=== PATIENT | female | born 1985 | race Caucasian/White ===

== ENCOUNTER 2016-12-27 11:56 | Emergency (ER) | payer OTHER ==
[~2016-12-27] VITALS: Ht 157.5 cm; Wt 47.9 kg
[2016-12-27 12:01] VITALS: BP 137/90; TEMP 36.9; Ht 157.5 cm; Wt 47.9 kg
[2016-12-27] MEDS ORDERED: HYDR-5688 PO (12:34)
--- NOTE | 2016-12-27 12:35 | EMERGENCY ROOM VISIT NOTE ---
ED Visit Note First contact with patient: 12:19 CHIEF COMPLAINT: Low back pain HISTORY OF PRESENT ILLNESS: This 31-year-old female patient presents to the emergency department ambulatory complaining of pain in the low back which began yesterday while at work. The pain was gradual in onset, is now constant and worse with movement. The patient notes the pain as a soreness and a 6/10. The patient has taken nothing for relief of the pain. The patient denies any bowel or bladder difficulties. There has been no leg numbness or weakness, and no change in sensation. No nausea or vomiting or abdominal pain. No chest pain or shortness of breath. The patient has had prior back injuries. The patient reports a history of scoliosis and chronic low back pain. She states it seems worse since yesterday. REVIEW OF SYSTEMS: No dysuria or increased urinary frequency. A 6 system review of systems was completed and pertinent positives and negatives are in the HPI. ALLERGIES: Latex MEDICATIONS: See nursing notes PMH: Patient denies SOCIAL HISTORY: The patient is employed. She is a smoker PHYSICAL EXAM: VITALS: Vitals are noted on the nurse's note and reviewed by myself. No abnormalities noted. GENERAL: This is a 31-year-old female, in no acute distress, nondiaphoretic, well-developed well-nourished. SKIN: The skin was without rashes, erythema, edema, or bruising. Capillary refill less than 2 seconds. NECK: Supple without nuchal rigidity. No cervical spine tenderness. No paraspinous muscle tenderness. HEART: Regular rate and rhythm without murmurs gallops or rubs. LUNGS: Clear to auscultation bilaterally without wheezes, rales or rhonchi. ABDOMEN: Positive bowel sounds x 4. Normal tympanic percussion. Soft, nontender, without masses or organomegaly. Cruz sign negative. MUSCULOSKELETAL: No muscle atrophy, erythema, or edema noted of the back. There is moderate tenderness over the lumbar spinous processes. There is no tenderness over the paraspinous muscles. There is no tenderness over the thoracic spine or paraspinous muscles. There are no muscle spasms present. The patient is slow to move around with maximum tenderness with extension. Negative straight leg raise test. NEURO: Patient was alert and oriented to person place and time. Normal sensation to light and sharp touch. Deep tendon reflexes 2+ in the lower extremities. Dorsalis pedis pulse 2+ bilaterally. Heel and toe walking is normal. EMERGENCY DEPARTMENT COURSE: The patient was seen and examined. Previous visits were reviewed. The patient does not have a fever. She does not have any neurologic deficit on exam or by history. The patient seems to have an exacerbation of her chronic pain. She will be given a small prescription for [place]. She will be given a note for work. She should return to the emergency Department with any worsening symptoms. Otherwise, she should follow with her family doctor next week. DIFFERENTIAL DIAGNOSIS: Lumbar strain, degenerative disc disease, spondylolisthesis, herniated disc, spinal stenosis, osteoporosis, fracture, cauda equina syndrome, neoplasm, infection, inflammatory arthritis, among others. DIAGNOSIS: Lumbar strain DISCHARGE INSTRUCTIONS AND TREATMENT: Rest off your feet for 1 to 2 days, ice for 24 hrs then heat to the low back. See your own doctor or an orthopedist in 3-5 days if you are not improving. Ibuprofen 600 mg every 6 hours if needed for the pain. [place] 1 tablet every 6 hours if needed for worse pain. Do not drink or drive while taking [place] and do not take with Tylenol.Return if any problems with bowel or bladder function or if loss of sensation/movement of lower extremities. Problem List Medical Problems: (1) AC PYELONEPHRITIS NOS Status: Resolved (2) Asthma Status: Chronic (3) Back pain Status: Resolved (4) Bronchitis Status: Resolved (5) Bronchitis Status: Resolved (6) Chest pain Status: Resolved (7) Chest wall pain Status: Resolved (8) Chest wall pain Status: Resolved (9) Dysuria Status: Resolved (10) E. COLI INFECT NOS Status: Resolved (11) Flu-like symptoms Status: Resolved (12) Infected insect bite of right leg Status: Resolved (13) Infected insect bite of right leg Status: Resolved (14) Persistent cough Status: Resolved (15) Sinus infection Status: Resolved (16) URIN TRACT INFECTION NOS Status: Resolved (17) Urinary tract infection Status: Resolved (18) Urinary tract infection Status: Resolved (19) Urinary tract infection Status: Resolved (20) UTI (urinary tract infection) Status: Resolved (21) Weakness Status: Resolved Surgical Problems: (1) History of tubal ligation Status: Resolved Current/Historical Medications Scheduled PRN Hydrocodone/Acetaminophen 5MG/325MG ([place] 5MG/325MG), 1 TABLET PO Q6 PRN for Pain Allergies Coded Allergies: Latex1 -Allergic Contact Dermititis (Verified Allergy, Unknown, RASH, 12/27) Vital Signs Date Time Temp Pulse Resp B/P Pulse Ox O2 Delivery O2 Flow Rate FiO2 12/27/16 12:49 85 18 96 Room Air 12/27/16 12:01 36.9 97 20 137/90 94 Room Air Departure Information Impression Primary Impression: Strain of lumbar region Dispostion Home / Self-Care Condition GOOD Prescriptions Hydrocodone/Acetaminophen 5MG/325MG ([place] 5MG/325MG) Tab 1 TABLET PO Q6 Y for Pain, #12 TAB For Initial Treatment Prov: Damaris Cole PA-C 12/27/16 Referrals No Doctor, Assigned (PCP) Patient Instructions Back Pain - [facility], [facility] Additional Instructions Rest off your feet for 1 to 2 days, ice for 24 hrs then heat to the low back. See your own doctor or an orthopedist in 3-5 days if you are not improving. Ibuprofen 600 mg every 6 hours if needed for the pain. [place] 1 tablet every 6 hours if needed for worse pain. Do not drink or drive while taking [place] and do not take with Tylenol.Return if any problems with bowel or bladder function or if loss of sensation/movement of lower extremities. Problem Qualifiers Primary Impression: Strain of lumbar region Encounter type: initial encounter Qualified Codes: S39.012A - Strain of muscle, fascia and tendon of lower back, initial encounter
[2016-12-27 12:49] VITALS: PULSE 85; O2SAT 96
== END 2016-12-27 12:49 | disposition home or self-care (01) ==
LOC: C.EDB 11:57 → C.EDD 12:49
DX: S39.012A Strain of muscle, fascia and tendon of lower back, initial encounter (principal); X58.XXXA Exposure to other specified factors, initial encounter; Y99.0 Civilian activity done for income or pay; F17.200 Nicotine dependence, unspecified, uncomplicated; J45.909 Unspecified asthma, uncomplicated; Z98.51 Tubal ligation status

== ENCOUNTER 2017-02-28 09:05 | Emergency (ER) | payer OTHER ==
[~2017-02-28] VITALS: Ht 157.5 cm; Wt 48.7 kg
[~2017-02-28 09:05] MED LIST: HYDR-5688 PO
[2017-02-28 09:09] VITALS: TEMP 36.7; Ht 157.5 cm; Wt 48.7 kg
[2017-02-28] MEDS ORDERED: ALBUT/IPRATROP 3MG/0.5MG NEB 3 ML VIAL INH STA (09:20)
[2017-02-28 09:47] LABS: URINE APPEARANCE CLOUDY (CLEAR); URINE BILIRUBIN NEG (NEG); URINE COLOR YELLOW; URINE EPITHELIAL CELL AUTO >30 /lpf (0-5); URINE NITRITE NEG (NEG); URINE PH 7.5 (4.5-7.5); URINE SPECIFIC GRAVITY 1.025 (1.000-1.030); UROBILINOGEN NEG (NEG); ZZUR CULT IF INDIC CLEAN CATCH YES
[2017-02-28 09:48] LABS: MANUAL MICROSCOPIC REQUIRED? NO; REVIEW REQ? NO
[2017-02-28] MEDS ORDERED: SULFAMETHOXAZOLE/TRIMETHOPRIM DS 800/160MG TAB PO STA (10:40)
[2017-02-28] MEDS ORDERED: SULF800T23 PO (10:42)
--- NOTE | 2017-02-28 10:49 | EMERGENCY ROOM VISIT NOTE ---
History Report prepared by Lisa: Zhao Castro Under the Supervision of: Dr. Terrence Lopez D.O. First contact with patient: 09:15 Chief Complaint: URINARY SYMPTOMS Stated Complaint: UTI Nursing Triage Summary: Pt reports she has interstitial cystitis Pt c/o painful urination x1 week History of Present Illness The patient is a 31 year old female who presents to the Emergency Room with complaints of persistent urinary symptoms for the past week. Her symptoms include burning with urination as well as urinary frequency. She also complains of nausea. Her symptoms feel exactly like previous UTIs. She has many UTIs throughout the year. She does have history of interstitial cystitis but notes that her current symptoms feel UTI-related. She does not have history of past abdominal surgeries. LNMP was three weeks ago and she denies the possibility of . Patient denies headache, change in vision, fevers, chest pain, shortness of breath, new back pain, abdominal pain, vomiting, diarrhea, pain with urination, melena, or abnormal vaginal bleeding / discharge. Source of History: patient Onset: this past week Position: other (urinary) Quality: other (UTI symptoms) Timing: other (persistent) Associated Symptoms: + nausea, No SOB, No abdominal pain, No back pain, No chest pain, No diarrhea, No fevers, No headache, No melena, No vomiting Review of Systems See HPI for pertinent positives & negatives. A total of 10 systems reviewed and were otherwise negative. Past Medical & Surgical Medical Problems: (1) AC PYELONEPHRITIS NOS (2) Asthma (3) Back pain (4) Bronchitis (5) Bronchitis (6) Chest pain (7) Chest wall pain (8) Chest wall pain (9) Dysuria (10) E. COLI INFECT NOS (11) Flu-like symptoms (12) Infected insect bite of right leg (13) Infected insect bite of right leg (14) Persistent cough (15) Sinus infection (16) URIN TRACT INFECTION NOS (17) Urinary tract infection (18) Urinary tract infection (19) Urinary tract infection (20) UTI (urinary tract infection) (21) Weakness Surgical Problems: (1) History of tubal ligation Family History Diabetes mellitus FH: arthritis FH: cancer FH: lung disease FHx: gallbladder disease Hypertension Kidney disease or stones Social History Smoking Status: Current Every Day Smoker Alcohol Use: occasionally Drug Use: none Marital Status: in relationship Housing Status: lives with family Occupation Status: unemployed Current/Historical Medications Scheduled Sulfa/Trimethoprim (Bactrim Ds 800MG/160MG), 1 TAB PO BID Allergies Coded Allergies: Latex1 -Allergic Contact Dermititis (Verified Allergy, Unknown, RASH, 02/28) Physical Exam Vital Signs Date Time Temp Pulse Resp B/P Pulse Ox O2 Delivery O2 Flow Rate FiO2 02/28/17 10:51 66 138/84 100 02/28/17 09:09 36.7 59 18 118/74 100 Room Air Physical Exam GENERAL: Sitting up in bed, alert, well appearing, well nourished, no distress, non-toxic EYE EXAM: normal conjunctiva. OROPHARYNX: no exudate, no erythema, lips, buccal mucosa, and tongue normal and mucous membranes are moist NECK: supple, no nuchal rigidity, no adenopathy, non-tender LUNGS: Clear to auscultation. Normal chest wall mechanics HEART: no murmurs, S1 normal and S2 normal ABDOMEN: abdomen soft, non-tender, normo-active bowel sounds, no masses, no rebound or guarding. SKIN: no rashes and no bruising UPPER EXTREMITIES: upper extremities are grossly normal. LOWER EXTREMITIES: No pitting edema. NEURO EXAM: Normal sensorium, cranial nerves II-XII grossly intact, normal speech, no gross weakness of arms, no gross weakness of legs. Gross sensation intact. Medical Decision & Procedures Laboratory Results Test 02/28/17 09:34 Urine Color YELLOW Urine Appearance CLOUDY (CLEAR) Urine pH 7.5 (4.5-7.5) Urine Specific [place] 1.025 (1.000-1.030) Urine Protein NEG (NEG) Urine Glucose (UA) NEG (NEG) Urine Ketones NEG (NEG) Urine Occult Blood NEG (NEG) Urine Nitrite NEG (NEG) Urine Bilirubin NEG (NEG) Urine Urobilinogen NEG (NEG) Urine Leukocyte Esterase SMALL (NEG) Urine WBC (Auto) 10-30 /hpf (0-5) Urine RBC (Auto) 0-4 /hpf (0-4) Urine Hyaline Casts (Auto) 1-5 /lpf (0-5) Urine Epithelial Cells (Auto) >30 /lpf (0-5) Urine Bacteria (Auto) 1+ (NEG) Urine Test NEG (NEG) Laboratory results per my review. Medications Administered Medications (Trade) Dose Ordered Sig/Elizabeth Route Start Time Stop Time Status Last Admin Dose Admin Trimethoprim/ Sulfamethoxazole (Septra Ds 800/ 160MG Tab) 1 tab NOW STAT PO 02/28/17 10:40 02/28/17 10:41 DC 02/28/17 10:48 1 TAB ED Course ED COURSE: Vital signs were reviewed and showed bradycardia. The patients medical record was reviewed The above diagnostic studies were performed and reviewed. ED treatments and interventions as stated above. 0925: The patient was evaluated in room B3b. A complete history and physical examination was performed. 1040: Septra Ds 800/160 mg PO. 1045: Updated the patient..I discussed my findings with the patient and she understands and agrees with the treatment plan. Based on the patients age, coexisting illnesses, exam and lab findings the decision to treat as an outpatient was made. The patient remained stable while under my care. The patient appeared well at the time of discharge. Medical Decision Differential diagnoses includes but is not limited to gastritis, peptic ulcer disease, GERD, gallbladder disease, pancreatitis, small bowel obstruction, acute coronary syndrome, pericarditis, ischemic bowel, irritable bowel disease, irritable bowel syndrome, appendicitis, diverticulitis, malignancy, hernia, urinary tract infection, torsion, /ectopic (if female), perforation, trauma, infectious. Patient is a 31-year-old female who presents to the ER for dysuria and frequency. She notes that this feels like her previous bouts of a UTI. She does have a history of interstitial cystitis. She has no abdominal pain. No fevers. No new back pain. UA had epithelial cells along with wbcs and leukocytes. Uncertain if this truly is contaminated but with her symptoms I felt it was reasonable to treat her with a dose of Bactrim and have her follow up with primary care doctor. Discussed with Pt concerning signs and symptoms to watch out for. Pt was instructed to follow up with their PCP and discussed with the patient their option to return to the ED at anytime for persistent or worsening symptoms. The appropriate anticipatory guidance and out-patient management, including indications for return to the emergency department, were explained at length to the patient and understood. Impression Primary Impression: Urinary tract infection Scribe Attestation The scribe's documentation has been prepared under my direction and personally reviewed by me in its entirety. I confirm that the note above accurately reflects all work, treatment, procedures, and medical decision making performed by me. Departure Information Dispostion Home / Self-Care Prescriptions Sulfa/Trimethoprim (Bactrim Ds 800MG/160MG) Tab 1 TAB PO BID, #14 TAB Prov: Terrence Lopez, DO 02/28/17 Referrals No Doctor, Assigned (PCP) Forms HOME CARE DOCUMENTATION FORM, IMPORTANT VISIT INFORMATION Patient Instructions ED UTI Cystitis Female, My [facility] Additional Instructions Please follow up with your primary care doctor with in the next 24 hours. Any worsening of your symptoms, please return to the ED immediately. This includes fevers greater than 100.4, back pain, worsening abdominal pain, or any other concerning signs or symptoms from your standpoint. Please take antibiotics as prescribed. Problem Qualifiers Primary Impression: Urinary tract infection Urinary tract infection type: acute cystitis Hematuria presence: without hematuria Qualified Codes: N30.00 - Acute cystitis without hematuria
[2017-02-28 10:51] VITALS: BP 138/84; PULSE 66; O2SAT 100
== END 2017-02-28 10:52 | disposition home or self-care (01) ==
LOC: C.EDB 09:06
DX: N39.0 Urinary tract infection, site not specified (principal); J45.909 Unspecified asthma, uncomplicated; Z98.51 Tubal ligation status; Z83.3 Family history of diabetes mellitus; Z80.9 Family history of malignant neoplasm, unspecified; Z82.49 Family history of ischemic heart disease and other diseases of the circulatory system; Z84.1 Family history of disorders of kidney and ureter; F17.210 Nicotine dependence, cigarettes, uncomplicated

== ENCOUNTER 2017-11-23 11:51 | Emergency (ER) | payer OTHER ==
[~2017-11-23] VITALS: Ht 157.5 cm; Wt 47.2 kg
[2017-11-23 11:58] VITALS: TEMP 36.4; Ht 157.5 cm; Wt 47.2 kg
[2017-11-23] MEDS ORDERED: SODIUM CHLORIDE 0.9% 1000ML 1,000 ML IV STA (14:19)
[2017-11-23] MEDS ORDERED: KETOROLAC TROMETHAMINE 30 MG/ML VIAL IV STA (14:19)
--- NOTE | 2017-11-23 14:55 | DIAGNOSTIC IMAGING REPORT ---
SINGLE VIEW CHEST CLINICAL HISTORY: Atypical chest pain. FINDINGS: An AP, portable, upright chest radiograph is compared to study dated 04/24/2014. The examination is degraded by portable technique and patient rotation. The cardiomediastinal silhouette is unremarkable. The lungs and pleural spaces are clear. No pneumothorax is seen. The bony thorax is grossly intact. There is mild S-shaped thoracolumbar scoliosis. IMPRESSION: No acute cardiopulmonary abnormality. Electronically signed by: Nayan Denis M.D. 11/23/2017 2:53 PM Dictated Date/Time: 11/23/2017 2:53 PM
[2017-11-23 14:58] LABS: HEMATOCRIT 41.1 % (37-47); HEMOGLOBIN 14.3 g/dL (12.0-16.0); MEAN CELL VOLUME 92.6 fL (80-100); MEAN CORPUSCULAR HEMOGLOBIN 32.2 pg (25-34); MEAN CORPUSCULAR HGB CONC 34.8 g/dl (32-36); MEAN PLATELET VOLUME 11.2 fL (7.4-10.4); PLATELET COUNT 281 K/uL (130-400); RED CELL DISTRIBUTION WIDTH CV 12.8 % (11.5-14.5); RED CELL DISTRIBUTION WIDTH SD 43.1 fL (36.4-46.3); WHITE BLOOD COUNT 11.49 K/uL (4.8-10.8)
[2017-11-23 15:26] LABS: ALBUMIN 4.4 gm/dl (3.4-5.0); ALT/SGPT 19 U/L (12-78); AST/SGOT 15 U/L (15-37); BLOOD UREA NITROGEN 9 mg/dl (7-18); CALCIUM 9.4 mg/dl (8.5-10.1); CARBON DIOXIDE 26 mmol/L (21-32); CREATININE 0.83 mg/dl (0.60-1.20); GLUCOSE 78 mg/dl (70-99); POTASSIUM 3.5 mmol/L (3.5-5.1); SODIUM 137 mmol/L (136-145)
[2017-11-23 15:31] LABS: ALKALINE PHOSPHATASE 65 U/L (45-117); LIPASE 102 U/L (73-393); TOTAL PROTEIN 8.7 gm/dl (6.4-8.2)
[2017-11-23 15:55] LABS: BASO % 0.3 %; BASO ABS # 0.03 K/uL (0-0.2); EOS % 0.6 %; EOS ABS # 0.07 K/uL (0-0.5); IG# 0.02 K/uL (0.00-0.02); LYMPH % 30.1 %; LYMPH ABS # 3.46 K/uL (1.2-3.4); MONO % 12.4 %; MONO ABS # 1.43 K/uL (0.11-0.59); NEUT % 56.4 %; NEUT ABS # 6.48 K/uL (1.4-6.5)
[2017-11-23 16:00] VITALS: BP 108/71
[2017-11-23 16:21] VITALS: PULSE 57; O2SAT 98
--- NOTE | 2017-11-23 21:43 | EMERGENCY ROOM VISIT NOTE ---
History Report prepared by Lisa: Blayne Rodriguez Under the Supervision of: Dr. Terrence Lopez D.O. First contact with patient: 14:12 Chief Complaint: ILLNESS Stated Complaint: LIGHTHEADED,NAUSEA,CHEST PAIN History of Present Illness The patient is a 32 year old female who presents to the Emergency Room with complaints of on and off chest left chest and abdominal pain starting in September which she describes as a sharp stabbing pain. She states that the chest pain shoots down her arm, and it is worsened with twisting, turning, and bending, and nothing makes it better. She additionally states that she gets short of breath due to the chest pain as it takes her breath away. The patient reports that she has been feeling weak since 2011, and she notes that she feels weak all of the time. She reports that she had six bowel movements yesterday which were all diarrhea. She also states that the other week she had a bruise under her left breast, and she states that she did not hit anything. The patient states that she has a blood disorder, though she is insure what it is, and they wanted to test her for fibromyalgia. She states that her last period was a few days ago, and she denies any vaginal bleeding or discharged. The patient is a heavy smoker. She has a family history of heart attacks, and she states that her cousin who is younger than her recently of a heart attack. She has not had any abdominal surgeries in the past. Pt denies headache, change in vision, fevers, nausea, vomiting, cough, runny nose, pain with urination, and melena. Source of History: patient Onset: September Position: chest, abdomen Quality: sharp, stabbing Timing: other (on and off) Modifying Factors (Worsening): other (twisting, turning, bending over, and deep inspiration) Modifying Factors (Relieving): other (nothing) Associated Symptoms: + SOB, + diarrhea, + weakness Review of Systems See HPI for pertinent positives & negatives. A total of 10 systems reviewed and were otherwise negative. Past Medical & Surgical Medical Problems: (1) AC PYELONEPHRITIS NOS (2) Asthma (3) Back pain (4) Bronchitis (5) Bronchitis (6) Chest pain (7) Chest wall pain (8) Chest wall pain (9) Dysuria (10) E. COLI INFECT NOS (11) Flu-like symptoms (12) Infected insect bite of right leg (13) Infected insect bite of right leg (14) Persistent cough (15) Sinus infection (16) URIN TRACT INFECTION NOS (17) Urinary tract infection (18) Urinary tract infection (19) Urinary tract infection (20) UTI (urinary tract infection) (21) Weakness Surgical Problems: (1) History of tubal ligation Family History Diabetes mellitus FH: arthritis FH: cancer FH: lung disease FHx: gallbladder disease Hypertension Kidney disease or stones Social History Smoking Status: Current Every Day Smoker Alcohol Use: occasionally Drug Use: none Marital Status: in relationship Housing Status: lives with family Occupation Status: unemployed Current/Historical Medications No Active Prescriptions or Reported Meds Allergies Coded Allergies: Latex1 -Allergic Contact Dermititis (Verified Allergy, Unknown, RASH, ) Physical Exam Vital Signs Date Time Temp Pulse Resp B/P (MAP) Pulse Ox O2 Delivery O2 Flow Rate FiO2 11/23/17 16:21 57 98 11/23/17 16:00 108/71 11/23/17 15:51 61 19 99 11/23/17 15:47 100/61 11/23/17 15:21 57 16 11/23/17 14:51 55 17 11/23/17 14:34 60 11/23/17 14:31 78 18 117/83 99 Room Air 11/23/17 14:31 117/83 11/23/17 11:58 36.4 63 18 129/80 99 Room Air Physical Exam GENERAL: Sitting up in bed, alert, well appearing, well nourished, no distress, non-toxic EYE EXAM: normal conjunctiva. OROPHARYNX: no exudate, no erythema, lips, buccal mucosa, and tongue normal and mucous membranes are moist NECK: supple, no nuchal rigidity, no adenopathy, non-tender, no JVD LUNGS: Clear to auscultation. Normal chest wall mechanics HEART: no murmurs, S1 normal and S2 normal CHEST: Acute reproducible left anterior chest wall pain same as stated complaint. ABDOMEN: abdomen soft, non-tender, normo-active bowel sounds, no masses, no rebound or guarding. BACK: Back is symmetrical on inspection and there is no deformity, no midline tenderness, no CVA tenderness. SKIN: no rashes and no bruising UPPER EXTREMITIES: upper extremities are grossly normal. LOWER EXTREMITIES: No pitting edema. Calves equal bilaterally. NEURO EXAM: Normal sensorium, cranial nerves II-XII grossly intact, normal speech, no gross weakness of arms, no gross weakness of legs. Ambulates without difficulty Medical Decision & Procedures ER Provider Diagnostic Interpretation: Radiology results as stated below per my review and the radiologist's interpretation: SINGLE VIEW CHEST CLINICAL HISTORY: Atypical chest pain. FINDINGS: An AP, portable, upright chest radiograph is compared to study dated 04/24/2014. The examination is degraded by portable technique and patient rotation. The cardiomediastinal silhouette is unremarkable. The lungs and pleural spaces are clear. No pneumothorax is seen. The bony thorax is grossly intact. There is mild S-shaped thoracolumbar scoliosis. IMPRESSION: No acute cardiopulmonary abnormality. Electronically signed by: Nayan Denis M.D. 11/23/2017 2:53 PM Dictated Date/Time: 11/23/2017 2:53 PM Laboratory Results 11/23/17 14:30 Red Blood Count 4.44, Mean Corpuscular Volume 92.6, Mean Corpuscular Hemoglobin 32.2, Mean Corpuscular Hemoglobin Concent 34.8, Mean Platelet Volume 11.2, Neutrophils (%) (Auto) 56.4, Lymphocytes (%) (Auto) 30.1, Monocytes (%) (Auto) 12.4, Eosinophils (%) (Auto) 0.6, Basophils (%) (Auto) 0.3, Neutrophils # (Auto ) 6.48, Lymphocytes # (Auto) 3.46, Monocytes # (Auto) 1.43, Eosinophils # (Auto ) 0.07, Basophils # (Auto) 0.03 11/23/17 14:30 Test 11/23/17 14:30 11/23/17 14:35 White Blood Count 11.49 K/uL (4.8-10.8) Red Blood Count 4.44 M/uL (4.2-5.4) Hemoglobin 14.3 g/dL (12.0-16.0) Hematocrit 41.1 % (37-47) Mean Corpuscular Volume 92.6 fL (80-100) Mean Corpuscular Hemoglobin 32.2 pg (25-34) Mean Corpuscular Hemoglobin Concent 34.8 g/dl (32-36) Platelet Count 281 K/uL (130-400) Mean Platelet Volume 11.2 fL (7.4-10.4) Neutrophils (%) (Auto) 56.4 % Lymphocytes (%) (Auto) 30.1 % Monocytes (%) (Auto) 12.4 % Eosinophils (%) (Auto) 0.6 % Basophils (%) (Auto) 0.3 % Neutrophils # (Auto) 6.48 K/uL (1.4-6.5) Lymphocytes # (Auto) 3.46 K/uL (1.2-3.4) Monocytes # (Auto) 1.43 K/uL (0.11-0.59) Eosinophils # (Auto) 0.07 K/uL (0-0.5) Basophils # (Auto) 0.03 K/uL (0-0.2) RDW Standard Deviation 43.1 fL (36.4-46.3) RDW Coefficient of Variation 12.8 % (11.5-14.5) Immature Granulocyte % (Auto) 0.2 % Immature Granulocyte # (Auto) 0.02 K/uL (0.00-0.02) D-Dimer 360 ug/L FEU (0-500) Anion Gap 7.0 mmol/L (3-11) Est Creatinine Clear Calc Drug Dose 72.5 ml/min Estimated GFR () 108.1 Estimated GFR (Non- 93.3 BUN/Creatinine Ratio 10.9 (10-20) Calcium Level 9.4 mg/dl (8.5-10.1) Total Bilirubin 0.8 mg/dl (0.2-1) Direct Bilirubin 0.1 mg/dl (0-0.2) Aspartate Amino Transf (AST/SGOT) 15 U/L (15-37) Alanine Aminotransferase (ALT/SGPT) 19 U/L (12-78) Alkaline Phosphatase 65 U/L (45-117) Troponin I < 0.015 ng/ml (0-0.045) Total Protein 8.7 gm/dl (6.4-8.2) Albumin 4.4 gm/dl (3.4-5.0) Lipase 102 U/L (73-393) Urine Color YELLOW Urine Appearance CLEAR (CLEAR) Urine pH 6.0 (4.5-7.5) Urine Specific [place] 1.019 (1.000-1.030) Urine Protein NEG (NEG) Urine Glucose (UA) NEG (NEG) Urine Ketones NEG (NEG) Urine Occult Blood 2+ (NEG) Urine Nitrite NEG (NEG) Urine Bilirubin NEG (NEG) Urine Urobilinogen NEG (NEG) Urine Leukocyte Esterase MODERATE (NEG) Urine WBC (Auto) 5-10 /hpf (0-5) Urine RBC (Auto) 0-4 /hpf (0-4) Urine Hyaline Casts (Auto) 1-5 /lpf (0-5) Urine Epithelial Cells (Auto) >30 /lpf (0-5) Urine Bacteria (Auto) 1+ (NEG) Urine Mucus PRESENT (NONE PRSENT) Urine Yeast (Auto) (NONE PRSENT) Urine Test NEG (NEG) Laboratory results per my review. Medications Administered Medications (Trade) Dose Ordered Sig/Elizabeth Route Start Time Stop Time Status Last Admin Dose Admin Sodium Chloride 1,000 ml @ 999 mls/hr Q1H1M STAT IV 11/23/17 14:19 11/23/17 15:23 DC 11/23/17 14:39 999 MLS/HR Ketorolac Tromethamine (Toradol Inj) 30 mg NOW STAT IV 11/23/17 14:19 11/23/17 14:21 DC 11/23/17 14:40 30 MG ECG Indication: chest pain Rate (beats per minute): 53 Rhythm: sinus bradycardia Findings: no ectopy, other (Normal axis) Change: Patient's EKG as interpreted by me. ED Course ED COURSE: Vital signs were reviewed and showed normal vitals The patients medical record was reviewed The above diagnostic studies were performed and reviewed. ED treatments and interventions as stated above. 1412: The patient was evaluated in room B9. A complete history and physical examination was performed. 1419: Toradol 30mg IV, Sodium Chloride 1000 ml @ 999 mls/hr IV 1522: I reevaluated the patient, and she was feeling better 1638: Upon reevaluation, the patient is doing well.I discussed my findings with the patient and she understands and agrees with the treatment plan. Based on the patients age, coexisting illnesses, exam and lab findings the decision to treat as an outpatient was made. The patient remained stable while under my care. The patient appeared well at the time of discharge. Medical Decision Differential diagnoses includes but is not limited to acute coronary syndrome, myocardial infarction, pericarditis, pulmonary embolus, aortic dissection, pneumonia, pneumothorax, musculoskeletal, shingles, esophageal. Patient is a 32-year-old female who presents to ER for chest pain associated with shortness of breath which has been present for the past 2-3 months. Chest pain is reproducible and worsens with twisting turning and bending. She also has a multitude of other complaints. CBC along with BMP, LFTs, bilirubin lipase and troponin were all negative. UA was contaminated with multiple epithelial cells. was negative. D-dimer was negative. EKG and chest x-ray were unremarkable. Patient was given fluids. She was updated bedside. She is also given Toradol. She was discharged follow-up with PCP for feeling diffusely weak, muscle skeletal chest pain causing shortness of breath. Discussed with Pt concerning signs and symptoms to watch out for. Pt was instructed to follow up with their PCP and discussed with the patient their option to return to the ED at anytime for persistent or worsening symptoms. The appropriate anticipatory guidance and out-patient management, including indications for return to the emergency department, were explained at length to the patient and understood. Medication Reconcilliation Current Medication List: was personally reviewed by me Blood Pressure Screening Patient's blood pressure: Normal blood pressure Impression Primary Impression: Chest wall pain Scribe Attestation The scribe's documentation has been prepared under my direction and personally reviewed by me in its entirety. I confirm that the note above accurately reflects all work, treatment, procedures, and medical decision making performed by me. Departure Information Dispostion Home / Self-Care Prescriptions No Active Prescriptions or Reported Meds Referrals No Doctor, Assigned (PCP) Forms HOME CARE DOCUMENTATION FORM, IMPORTANT VISIT INFORMATION, WORK / SCHOOL INSTRUCTIONS Patient Instructions Chest Pain - [facility], My [facility] Additional Instructions Please follow up with your primary care doctor with in the next 24 hours. Any worsening of your symptoms, please return to the ED immediately. This includes any fevers greater than 100.4, worsening pain, chest pain, shortness breath, persistent nausea, vomiting, unable to eat or drink, or any other concerning signs or symptoms from your standpoint. Please take Tylenol or Motrin as needed for muscle aches.
--- NOTE | 2017-11-25 11:58 | Pharmacy Progress Note ---
ED Pharmacist Culture FollowUp Date of Service: Nov 25, 2017. Patient urine culture growing Gardnerella-like bacilli >100,000 CFU/ml plus low counts other mixed nikki, Epi >30+ in UA. Discussed with Dr. Ma, no treatment necessary.
== END 2017-11-23 16:30 | disposition home or self-care (01) ==
LOC: C.EDB 11:52
DX: R07.89 Other chest pain (principal); R19.7 Diarrhea, unspecified; F17.200 Nicotine dependence, unspecified, uncomplicated; J45.909 Unspecified asthma, uncomplicated; Z87.440 Personal history of urinary (tract) infections; Z98.51 Tubal ligation status; Z83.3 Family history of diabetes mellitus; Z82.49 Family history of ischemic heart disease and other diseases of the circulatory system; Z82.61 Family history of arthritis

== ENCOUNTER 2018-01-31 19:23 | Emergency (ER) | payer OTHER ==
[~2018-01-31] VITALS: Ht 157.5 cm; Wt 48.9 kg
[2018-01-31 19:27] VITALS: TEMP 36.6; Ht 157.5 cm; Wt 48.9 kg
[2018-01-31] MEDS ORDERED: IBUPROFEN 600 MG TAB PO STA (19:41)
[2018-01-31] MEDS ORDERED: ACET-1256 PO (20:07)
--- NOTE | 2018-01-31 20:07 | DIAGNOSTIC IMAGING REPORT ---
R ANKLE MIN 3 VIEWS ROUTINE CLINICAL HISTORY: 32 years-old Female presenting with R ankle pain. TECHNIQUE: Frontal, mortise, and lateral views of the right ankle were obtained. COMPARISON: None. FINDINGS: No acute fracture or malalignment. No advanced degenerative change. No radiographic soft tissue abnormality. IMPRESSION: No acute osseous injury. Electronically signed by: Delfin Parnell M.D. 01/31/2018 8:06 PM Dictated Date/Time: 01/31/2018 8:06 PM
[2018-01-31 20:24] VITALS: BP 132/79; PULSE 88; O2SAT 99
--- NOTE | 2018-01-31 20:26 | EMERGENCY ROOM VISIT NOTE ---
History First contact with patient: 19:31 Chief Complaint: ANKLE PAIN Stated Complaint: R ANKLE BRUSIED,SWALLON,NON ALESSIA BEARING History of Present Illness The patient is a 32 year old female who presents to the Emergency Room with complaints of a right ankle injury today. The patient reports that she got her foot caught in a duvet cover yesterday at work, twisting her ankle. The patient reports worsening symptoms, bruising and swelling today. She denies any pain radiating into the leg or toes. She denies any paresthesias or numbness of the right foot or toes, and rates her discomfort a 6 out of 10. The patient has taken Tylenol for the pain. She did spend an extensive amount of time on her feet today at work. Review of Systems 10 system review was performed and was negative except for pertinent positives and negatives as indicated in history of present illness Past Medical/Surgical History Medical Problems: (1) AC PYELONEPHRITIS NOS (2) Asthma (3) Back pain (4) Bronchitis (5) Bronchitis (6) Chest pain (7) Chest wall pain (8) Chest wall pain (9) Dysuria (10) E. COLI INFECT NOS (11) Flu-like symptoms (12) Infected insect bite of right leg (13) Infected insect bite of right leg (14) Persistent cough (15) Sinus infection (16) URIN TRACT INFECTION NOS (17) Urinary tract infection (18) Urinary tract infection (19) Urinary tract infection (20) UTI (urinary tract infection) (21) Weakness Surgical Problems: (1) History of tubal ligation Family History Diabetes mellitus FH: arthritis FH: cancer FH: lung disease FHx: gallbladder disease Hypertension Kidney disease or stones Social History Smoking Status: Current Every Day Smoker Alcohol Use: occasionally Drug Use: none Marital Status: in relationship Housing Status: lives with family Occupation Status: unemployed Current/Historical Medications Scheduled PRN Acetaminophen (Tylenol), 1,000 MG PO Q6 PRN for Pain Physical Exam Vital Signs Date Time Temp Pulse Resp B/P (MAP) Pulse Ox O2 Delivery O2 Flow Rate FiO2 01/31/18 19:27 36.6 89 18 133/77 99 Room Air Physical Exam CONSTITUTIONAL: Healthy and well nourished. Alert and oriented X 3 with positive affect. Patient does not appear in any acute distress. HEENT: Normocephalic, atraumatic. Pupils equal, round and reactive. NECK: Full active range of motion without discomfort. MUSCULOSKELETAL: Examination of the right ankle shows mild edema and ecchymosis. The patient has generalized tenderness to palpation medially and laterally. Negative anterior drawer. No focal tenderness over the dorsal midfoot, metatarsals, phalanges, calcaneus or Achilles tendon. Pedal pulses are intact. INTEGUMENTARY: No rash or other significant dermatologic conditions noted. NEUROLOGIC: Right foot and toes are sensory intact. Medical Decision & Procedures ER Provider Diagnostic Interpretation: My interpretation of right ankle x-rays does not show any acute fracture, dislocation or ankle mortise asymmetry. Radiologist report is as follows: R ANKLE MIN 3 VIEWS ROUTINE CLINICAL HISTORY: 32 years-old Female presenting with R ankle pain. TECHNIQUE: Frontal, mortise, and lateral views of the right ankle were obtained. COMPARISON: None. FINDINGS: No acute fracture or malalignment. No advanced degenerative change. No radiographic soft tissue abnormality. IMPRESSION: No acute osseous injury. Medications Administered Medications (Trade) Dose Ordered Sig/Elizabeth Route Start Time Stop Time Status Last Admin Dose Admin Ibuprofen (Motrin Tab) 600 mg NOW STAT PO 01/31/18 19:41 01/31/18 19:43 DC 01/31/18 19:46 600 MG ED Course Patient history and physical exam were performed. Nurse's notes were reviewed. Vital signs were reviewed and were normal. The patient was administered ibuprofen 600 mg and an ice pack for pain. X-rays of the right ankle were normal. The patient was dispensed crutches and an ankle gel splint. The patient was encouraged to limit weightbearing over the next several days. She was given instructions on range of motion exercises. She was encouraged alternate ibuprofen and Tylenol as needed for pain relief. I did encourage her to follow-up with her Worker's Compensation physician approved orthopedic surgeon if symptoms are not improving within the next week. The patient was happy with plan of care, voiced understanding of all discharge instructions, and rated her discomfort a 3 out of 10 at the conclusion of my exam. Medical Decision Medication Reconcilliation Current Medication List: was personally reviewed by me Blood Pressure Screening Patient's blood pressure: Normal blood pressure Impression Primary Impression: Right ankle sprain Additional Impression: Work related injury Departure Information Referrals No Doctor, Assigned (PCP) Patient Instructions My [facility] Problem Qualifiers Primary Impression: Right ankle sprain Encounter type: initial encounter Involved ligament of ankle: unspecified ligament Qualified Codes: S93.401A - Sprain of unspecified ligament of right ankle, initial encounter
== END 2018-01-31 20:35 | disposition home or self-care (01) ==
LOC: C.EDB 19:25 → C.EDD 20:35
DX: S93.401A Sprain of unspecified ligament of right ankle, initial encounter (principal); X50.1XXA Overexertion from prolonged static or awkward postures, initial encounter; Y93.89 Activity, other specified; Y99.0 Civilian activity done for income or pay; J45.909 Unspecified asthma, uncomplicated; F17.200 Nicotine dependence, unspecified, uncomplicated

== ENCOUNTER 2018-02-04 08:18 | Emergency (ER) | payer OTHER ==
[~2018-02-04] VITALS: Ht 157.5 cm; Wt 49.4 kg
[~2018-02-04 08:18] MED LIST changes: +ACET-1256 PO; -HYDR-5688 PO
[2018-02-04 08:24] VITALS: TEMP 36.9; Ht 157.5 cm; Wt 49.4 kg
[2018-02-04] MEDS ORDERED: TRAMADOL HCL 50 MG TAB PO STA (08:36)
[2018-02-04] MEDS ORDERED: ACETAMINOPHEN 500 MG TAB PO STA (08:36)
--- NOTE | 2018-02-04 08:42 | EMERGENCY ROOM VISIT NOTE ---
History Report prepared by Lisa: Genesis Milner Under the Supervision of: Dr. Wicho Daily M.D. First contact with patient: 08:28 Chief Complaint: ANKLE PAIN Stated Complaint: ANKLE AND FOOT SWELLING History of Present Illness The patient is a 32 year old white female with a past medical history of interstitial cystitis who presents to the ED with a cc of right ankle/foot pain beginning four days ago. Positive ankle swelling, ankle pain. Negative calf pain. The patient came to the ED on January 31 for ankle swelling which she reports started suddenly on the when she woke up. She denies any falls or trauma. While the patient was in the ED, she states she was diagnosed with an ankle sprain. She reports taking taking ibuprofen and Tylenol every six hours. The patient reports icing and elevating her ankle with relief. The patient states her pain is mostly present when it is swollen and when she puts pressure on her foot. The patient is requesting an antiinflammatory to better control the swelling. The patient was seen in the ED on January 31 where she had a negative ankle film. Source of History: patient Onset: four days ago Position: ankle (right) Quality: other (swelling and pain) Timing: constant Modifying Factors (Worsening): other (pressure) Modifying Factors (Relieving): ice, elevation Review of Systems See HPI for pertinent positives and negatives. A total of 6 systems were reviewed and were otherwise negative. Past Medical & Surgical Medical Problems: (1) AC PYELONEPHRITIS NOS (2) Asthma (3) Back pain (4) Bronchitis (5) Bronchitis (6) Chest pain (7) Chest wall pain (8) Chest wall pain (9) Dysuria (10) E. COLI INFECT NOS (11) Flu-like symptoms (12) Infected insect bite of right leg (13) Infected insect bite of right leg (14) Persistent cough (15) Sinus infection (16) URIN TRACT INFECTION NOS (17) Urinary tract infection (18) Urinary tract infection (19) Urinary tract infection (20) UTI (urinary tract infection) (21) Weakness Surgical Problems: (1) History of tubal ligation Family History Diabetes mellitus FH: arthritis FH: cancer FH: lung disease FHx: gallbladder disease Hypertension Kidney disease or stones Social History Smoking Status: Current Every Day Smoker Alcohol Use: occasionally Drug Use: none Marital Status: in relationship Housing Status: lives with family Occupation Status: unemployed Current/Historical Medications Scheduled Tramadol Hcl (Ultram), 50 MG PO Q8H Scheduled PRN Acetaminophen (Tylenol), 1,000 MG PO Q6 PRN for Pain Allergies Coded Allergies: Oxycodone (Unverified Allergy, Mild, VOMITTING, 02/04/18) Latex1 -Allergic Contact Dermititis (Verified Allergy, Unknown, RASH, 02/04) Physical Exam Vital Signs Date Time Temp Pulse Resp B/P (MAP) Pulse Ox O2 Delivery O2 Flow Rate FiO2 02/04/18 08:24 36.9 78 20 130/91 99 Room Air Physical Exam GENERAL: Awake, alert, well-appearing, NAD HENT: Normocephalic, atraumatic. EYES: Normal conjunctiva. Sclera non-icteric. NECK: Supple. No nuchal rigidity. FROM. RESPIRATORY: CTAB, no rhonchi, wheezing, crackles CARDIAC: RRR, no MRG ABDOMEN: Soft, NTND, BS+ MSK: No chest wall TTP, no calf pain, negative Wanda's sign, no swelling to the leg, significant swelling to right lateral foot, mild pain to palpation, no erythema no calor, NVI distally to SP/DP/tib. NEURO: GCS 15, CN 2-12 intact, moves all 4s on command SKIN: No rash or jaundice noted. Medical Decision & Procedures ER Provider Diagnostic Interpretation: Radiology results as stated below per my review and radiologist interpretation: R ANKLE MIN 3 VIEWS ROUTINE, R FOOT MIN 3 VIEWS ROUTINE FINDINGS: Lateral soft tissue swelling within the ankle/hindfoot. No fracture or dislocation. The Lisfranc joint and ankle mortise are maintained. No radiopaque foreign bodies. IMPRESSION: Lateral soft tissue swelling. No fracture or dislocation within the right ankle or right foot. Electronically signed by: Buzz Franklin M.D. R ANKLE MIN 3 VIEWS ROUTINE, R FOOT MIN 3 VIEWS ROUTINE FINDINGS: Lateral soft tissue swelling within the ankle/hindfoot. No fracture or dislocation. The Lisfranc joint and ankle mortise are maintained. No radiopaque foreign bodies. IMPRESSION: Lateral soft tissue swelling. No fracture or dislocation within the right ankle or right foot. Electronically signed by: Buzz Franklin M.D. Medications Administered Medications (Trade) Dose Ordered Sig/Elizabeth Route Start Time Stop Time Status Last Admin Dose Admin Acetaminophen (Tylenol Tab) 1,000 mg NOW STAT PO 02/04/18 08:36 02/04/18 08:38 DC 02/04/18 09:02 1,000 MG Tramadol HCl (Ultram Tab) 50 mg NOW STAT PO 02/04/18 08:36 02/04/18 08:38 DC 02/04/18 09:01 50 MG ED Course 0830: The patient was evaluated in room A12B. A complete history and physical exam was performed. 0958: I updated the patient on her test results. 1018: I reevaluated the patient. Discussed results and discharge instructions: She verbalized understanding and agreement. The patient is ready for discharge. Medical Decision The patient is a 32 year old white female with a past medical history of interstitial cystitis who presents to the ED with a cc of right ankle/foot pain beginning four days ago. Nursing notes reviewed. Ancillary studies and prior records reviewed. Differential diagnosis: Etiologies such as fracture, dislocation, neurovascular compromise, compartment syndrome, soft tissue injury, as well as others were entertained. Patient was seen and evaluated the bedside. Of note the patient was recently seen here 4 days prior where she had a negative ankle film. Patient denies any trauma or injury. Patient does have some pain to the right lateral aspect of the foot with some significant swelling. MVI distally. Patient does not have any calf pain negative Homans sign. Less likely DVT believe this is isolated just to the foot. Patient did have a right foot and ankle film completed. Only soft tissue swelling but no evidence of fracture or dislocation. The patient was placed in an [place]ez wrap. The patient was given an anti-inflammatory. Patient was deemed suitable for outpatient follow-up and treatment at this time. Patient was given recommendations for RICE therapy and follow-up with PCP and orthopedics as needed. If she does have a ligamentous injury she may require further imaging and/or physical therapy. Patient was given strict follow-up, discharge, and return precautions. All questions were answered. Patient was deemed suitable for outpatient follow-up at this time. Patient agreed with the plan of care and was safely discharged home. [place] Drug Monitoring Program Search Results: patient reviewed within database, no issues identified Drug Monitoring Findings: no prescriptions in the last year for controlled substances Medication Reconcilliation Current Medication List: was personally reviewed by me Blood Pressure Screening Patient's blood pressure: Normal blood pressure Impression Primary Impression: Foot pain, right Additional Impression: Swelling of foot joint Scribe Attestation The scribe's documentation has been prepared under my direction and personally reviewed by me in its entirety. I confirm that the note above accurately reflects all work, treatment, procedures, and medical decision making performed by me. Departure Information Dispostion Home / Self-Care Prescriptions Tramadol Hcl (ULTRAM) 50 Mg Tab 50 MG PO Q8H, #12 TAB PRN PAIN Prov: Wicho Daily M.D. 02/04/18 Referrals No Doctor, Assigned (PCP) [facility] Forms HOME CARE DOCUMENTATION FORM, IMPORTANT VISIT INFORMATION Patient Instructions Anatomy Foot, ED Yesica GARCIAS [facility] Additional Instructions Please return to the emergency department if you have worsening or recurrent symptoms not amenable to at-home treatment. Please call for a follow-up appointment with her primary care physician. Please take your medications as prescribed. If you have other concerns and/or complaints please feel free to also call your primary care physician's office or return the ED for further evaluation, management, and treatment. You may take 800 mg Ibuprofen every 6 hours as needed for pain/fever with food unless told by your physician not to take NSAIDs. You may take tylenol 1000 mg every 6 hours as needed for pain/fever unless told by your physician to not take it or have liver problems. You may take motrin and tylenol separately or at the same time. Take your medications as prescribed. If taking an antibiotic consider taking a probiotic and/or eating yogurt, but at the least, please take with food as it can cause upset stomach. If culture results are not available at discharge, if they are positive for concern of infection, you will be informed of the results as soon as they are available. If you were seen between 11pm and 7AM all radiology reads will be re-read by our in house staff. If any major discrepancies are discovered, you will be notified. You have been examined and treated today on an emergency basis only. This is not a substitute for, or an effort to provide, complete comprehensive medical care. It is impossible to recognize and treat all injuries or illnesses in a single emergency department visit. It is therefore important that you follow up closely with [facility], your PCP, and/or your specialist(s). Call as soon as possible for an appointment. Thank you for your time and consideration. I look forward to speaking with you again soon. Please don't hesitate to call us if you have any questions. Problem Qualifiers Additional Impression: Swelling of foot joint Laterality: right Qualified Codes: M25.474 - Effusion, right foot
--- NOTE | 2018-02-04 09:33 | DIAGNOSTIC IMAGING REPORT ---
R ANKLE MIN 3 VIEWS ROUTINE, R FOOT MIN 3 VIEWS ROUTINE CLINICAL HISTORY: significant R lateral foot swelling/ankle pain COMPARISON STUDY: Right ankle 01/31/2018. FINDINGS: Lateral soft tissue swelling within the ankle/hindfoot. No fracture or dislocation. The Lisfranc joint and ankle mortise are maintained. No radiopaque foreign bodies. IMPRESSION: Lateral soft tissue swelling. No fracture or dislocation within the right ankle or right foot. Electronically signed by: Buzz Franklin M.D. 02/04/2018 9:32 AM Dictated Date/Time: 02/04/2018 9:22 AM
[2018-02-04] MEDS ORDERED: TRAM-453 PO (09:56)
[2018-02-04 10:18] VITALS: BP 118/91; PULSE 74; O2SAT 100
== END 2018-02-04 10:19 | disposition home or self-care (01) ==
LOC: C.EDB 08:19 → C.EDA 10:19
DX: M79.671 Pain in right foot (principal); M25.474 Effusion, right foot; J45.909 Unspecified asthma, uncomplicated; F17.200 Nicotine dependence, unspecified, uncomplicated; Z87.440 Personal history of urinary (tract) infections; Z98.51 Tubal ligation status; Z88.5 Allergy status to narcotic agent; Z91.040 Latex allergy status